=== PATIENT | female | born 1955 | race American Indian/Alaskan Native ===

== ENCOUNTER 2016-11-07 06:17 | Day surgery (SDC) | payer MEDICARE ==
[~2016-11-07 06:17] MED LIST: NACL 0.9% 1000 ML 1,000 ML IV SCH; PEPCID PO NR; VANCOMYCIN/NS 1 GM/250 ML 1 GM/250 ML BAG IV NR; VERSED IV NR
[2016-11-07] MEDS ORDERED: SUBLIMAZE ONE (07:07)
[2016-11-07] MEDS ORDERED: DIPRIVAN 10 MG/ML IV ONE (07:07)
[2016-11-07] MEDS ORDERED: DECADRON ONE (07:07)
[2016-11-07] MEDS ORDERED: ZOFRAN ONE (07:07)
[2016-11-07] MEDS ORDERED: XYLOCAINE MPF 2% ONE (07:07)
[2016-11-07] MEDS ORDERED: MARCAINE 0.5% INFILTRATI ONE ×2 (07:09→08:59)
[2016-11-07] MEDS ORDERED: HEPARIN 10,000 UNITS/10 ML ONE (07:10)
[2016-11-07] MEDS ORDERED: NACL 0.9% 500 ML 500 ML ONE (07:10)
[2016-11-07] MEDS ORDERED: NACL BACTERIOSTATIC INFILTRATI ONE (07:28)
--- NOTE | 2016-11-07 07:49 | Anesthesia Consultation ---
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
--- NOTE | 2016-11-07 07:50 | Anesthesia Day of Surgery ---
Anesthesia Day of Surgery - Day of Surgery Patient Examined: Yes Patient H&P Reviewed: Yes Patient is NPO: Yes Beta Blockers: Yes
[2016-11-07] MEDS ORDERED: ePHEDrine SULFATE ONE (08:23)
[2016-11-07] MEDS ORDERED: HEPARIN 10,000 UNITS/10 ML IV ONE (08:57)
[2016-11-07] MEDS ORDERED: NACL 0.9% IR ONE (08:58)
[2016-11-07] MEDS ORDERED: NACL 0.9% 500 ML IRRIGATION ONE (08:58)
--- NOTE | 2016-11-07 09:36 | Short Stay Summary ---
Short Stay Documentation Date of service: 11/07/16 Narrative H&P: See H&P - History H&P: obtained from office - Allergies and Medications Current Medications: Allergies Sulfa (Sulfonamide Antibiotics) Allergy (Severe, Verified 11/03/16 12:01) Headache acetaminophen [From Percocet] Allergy (Verified 11/03/16 12:01) headache ,nausea oxycodone HCl [From Percocet] Allergy (Verified 11/07/16 07:30) nausea , headache STATES SHE IS NOT ALLERGIC TO PERCOCET tramadol Adverse Reaction (Severe, Verified 11/03/16 12:01) Headache amoxicillin [Amoxicillin] Adverse Reaction (Verified 11/03/16 12:01) Hives codeine Adverse Reaction (Verified 11/03/16 12:01) nausea ,headache hydromorphone HCl [From Dilaudid] Adverse Reaction (Verified 11/03/16 12:01) Anaphylaxis Home Medications Medication Instructions Recorded Confirmed Last Taken Type Gabapentin 300 mg PO TID 05/27/13 11/03/16 09/09/14 12:00 History Hydralazine HCl [hydrALAZINE] 100 mg PO TID 05/27/13 11/03/16 09/10/14 04:30 History cloNIDine [Catapres] 0.2 mg PO BID 09/03/14 11/03/16 09/10/14 04:30 History HYDROcodone/ACETAMINOPHEN [[place] 1 each PO Q6HR PRN #60 tablet 09/10/14 Unknown Rx 7.5-325 mg TAB] Clopidogrel [Plavix] 75 mg PO HS 12/22/15 11/03/16 Unknown History Belatacept [Nulojix] 250 mg IV QMONTH 11/03/16 11/03/16 Unknown History Carvedilol [Coreg] 25 mg PO BID 11/03/16 11/03/16 Unknown History Cinacalcet [Sensipar] 30 mg PO QDAY 11/03/16 11/03/16 Unknown History Cyclobenzaprine [Flexeril] 10 mg PO QDAY PRN 11/03/16 11/03/16 Unknown History Fluticasone [Flonase] 2 spray INNOSTRIL QDAY 11/03/16 11/03/16 Unknown History Hydrocortisone [Anucort-HC SUPPOS] 25 mg RC BID 11/03/16 11/03/16 Unknown History Mycophenolate [Cellcept] 500 mg PO TID 11/03/16 11/03/16 Unknown History NIFEdipine XL [Procardia Xl] 60 mg PO BID 11/03/16 11/03/16 Unknown History Ondansetron [Zofran Odt] 4 mg PO QDAY PRN 11/03/16 11/03/16 Unknown History Prednisone [predniSONE ([place]) ER 5 mg PO QDAY PRN 11/03/16 11/03/16 Unknown History TAB] Ranitidine HCl [Zantac 300 MG TAB] 300 mg PO QPM 11/03/16 11/03/16 Unknown History Tacrolimus [Envarsus Xr] 4 mg PO BID 11/03/16 11/03/16 Unknown History clonazePAM [ Klonopin] 0.5 mg PO QDAY 11/03/16 11/03/16 Unknown History clonazePAM [Klonopin] 1 mg PO HS 11/03/16 11/03/16 Unknown History Active Medications Famotidine (Pepcid) 20 mg PO PREOP NR Stop: 11/07/16 23:59 Last Admin: 11/07/16 07:50 Dose: 20 mg Sodium Chloride (Nacl 0.9% 1000 Ml) 1,000 mls @ 42 mls/hr IV DIRECT LUIS Last Admin: 11/07/16 07:50 Dose: 42 mls/hr Vancomycin HCl (Vancomycin/Ns 1 Gm/250 Ml) 1 gm in 250 mls @ 166.667 mls/hr IV PREOP NR PRN Reason: Protocol Stop: 11/07/16 23:00 Last Admin: 11/07/16 07:50 Dose: 166.667 mls/hr Midazolam HCl (Versed) 2 mg IV PREOP NR Stop: 11/07/16 23:59 - Brief post op/procedure progress note Date of procedure: 11/07/16 Pre-op diagnosis: Complications of Dialysis Access Post-op diagnosis: same Procedure: Ligation of Left Arm Arteriovenous Fistula Anesthesia: KEVIN Surgeon: VANESSA BULLOCK Estimated blood loss: 50-100ml Pathology: none Condition: stable - Disposition Condition at discharge: Good Disposition: DISCHARGED TO HOME OR SELFCARE Short Stay Discharge Plan Activity: other (no heavy lifting with left arm) Wound: open to air, keep clean and dry, other (okay to wash the wound with soap and water but do not soak in water) Follow up with: VANESSA BULLOCK MD [Staff Physician] - 14 Days Prescriptions: Oxycodone HCl/Acetaminophen [Percocet 7.5/325 mg] 1 each PO Q6HR PRN #30 tablet PRN Reason: Pain
--- NOTE | 2016-11-07 09:42 | Operative Report ---
Operative Report Operative Report: Date of Procedure: 11/07/2016 Pre-operative Diagnosis: Complications of Dialysis Access Post-operative Diagnosis: Same Procedure(s): 1. Ligation of Left Arm Arteriovenous Fistula Surgeon: Robert Cutler M.D. Courtesy Clerk: None Anesthesia: Gen. Endotracheal Anesthesia EBL: 50 mL Counts: Correct Complications: None Condition: Stable Findings: Successful ligation of left arm arteriovenous fistula with repair of the brachial artery and palpable radial pulse completion of the case. Specimen: None Indication: The patient is a 61-year-old female with a history of end-stage renal disease. She had previously been on hemodialysis through a left arm arteriovenous fistula. She recently underwent a renal transplant and is no longer on hemodialysis. She has a history of central venous occlusive disease resulting in left arm swelling and pain. Since she is off dialysis she asked that her access being ligated to resolve her swelling and pain since she is no longer a candidate for fistulogram with angioplasty secondary to contrast. She was given the risk, benefits, and alternative procedures and consented to procedure. Description of Procedure: The patient was brought to the operating room and laid in supine position. After general endotracheal anesthesia was achieved the left arm was prepped and draped in normal sterile fashion. A transverse incision was created through her previous incision below the anatomic increase and carried down to the arterial anastomosis using sharp dissection. The brachial artery was dissected small and distal to the anastomosis and control vessels. I dissected circumferentially around the fistula and then ligated the fistula just proximal to the anastomosis. I divided the fistula and then used the redundant portions of the fistula to close the brachial artery arteriotomy with a 6-0 Prolene in running fashion. After completing the closure the vessels were released allowing flow in the brachial artery which had an excellent pulse at the area of repair and at the radial artery. I then made a longitudinal incision in the upper arm through her previous incision that was used for elevation of her fistula. I dissected down to the fistula using sharp dissection and then dissected circumferentially around the proximal fistula. I then placed a 2-0 silk around the fistula and evacuated the residual blood within the fistula and then ligated the fistula leaving the remaining portion decompressed. Hemostasis within the wounds was achieved with clot electrocautery. Once hemostasis was achieved both wounds were anesthetized with Marcaine and closed in 2 layers using a 3-0 Vicryl in a running fashion and the deep dermal layer, a 4-0 Monocryl in running fashion and subcuticular, and then dressed with Dermabond. The patient tolerated the procedure well. All sponge, needle, and instrument counts were correct. The patient was taken to the recovery area in stable condition.
[2016-11-07] MEDS ORDERED: DILAUDID IV PRN (09:45)
[2016-11-07] MEDS ORDERED: MORPHINE IV PRN (10:17)
--- NOTE | 2016-11-07 10:49 | Post Anesthesia Evaluation ---
- Post Anesthesia Evaluation Patient Participated: Yes Airway Patent: Yes Stable Respiratory Function: Yes Nausea/Vomiting: No Temp > 96.8F: Yes Pain Manageable: Yes Adequeate Hydration: Yes Anesthesia Complications: No Block Receding Appropriately: Not Applicable Patient on Ventilator: No
[2016-11-07] MEDS ORDERED: PERCOCET 5/325 PO PRN (11:30)
[2016-11-07 11:43] VITALS: BP 131/77
--- NOTE | 2016-11-07 16:31 | Admit Criteria Form ---
Admission Criteria Documentation: AMBULATORY SURGERY EXCEPTION CRITERIA Ambulatory Surgery Exception Criteria ( Place 'X' for any and all applicable criteria): Surgery or procedure performed on ambulatory basis may require inpatient stay for[A] ANY ONE of the following(1)(2)(3)(4)(5)(6)(7)(8)(9): [X] I. A preoperative situation, condition, or finding that warrants inpatient stay as indicated by ANY ONE of the following: [] a) Inpatient care needed because of severity of a disease or condition rather than the surgery (eg, severe cardiac or respiratory disease, severe infection) (15) (16 ) (17) (18) [] b) Emergent procedure (eg, angioplasty for acute ischemia)(19) [] c) Complex surgical approach or situation as indicated by ANY ONE of the following(3): [] i) Open approach needed instead of usual endoscopic, transcatheter, or other less invasive procedure [] ii) Difficult approach because of previous operation [] iii) Airway monitoring required after open neck procedures(20)(21) [] iv) Large mass requiring unusually extensive dissection [] v) Additional complicating feature requiring inpatient care (eg, drain management)(22(23): [X] d) Major surgery in a pt with high anesthetic risk as indicated by ANY ONE of the following (2)(3)(5)(7)(8): [X] i) ASA risk class III or higher (severe systemic disease impairing function) [D] [] ii) Advanced age (eg, older than 85 years)(14)(24) [] iii) Symptomatic heart failure(25) [] iv) Symptomatic asthma or COPD(8)(21) [] v) Morbid obesity with hemodynamic or respiratory problems(20)( 21)(26)(27) [] vi) Obstructive sleep apnea(20)(21) [] vii) Former premature infants who are younger than 60 weeks [] viii) High risk for severe postoperative abnormalities (eg, severe postoperative hypocalcemia after parathyroidectomy for severe hyperparathyroidism)(27)( 28) [] ix) Unstable angina(25) [] e) Drug-related risk requiring inpatient stay as indicated by ANY ONE of the following(5)(10)(14)(32)(33) [] i) Procedure requires discontinuing drugs or other therapy (eg , antiarrhythmic medication, antiseizure medication), which necessitates inpatient observation or treatment.(18)(31) [] ii) Major surgery and high risk drug use as indicated by ANY ONE of the following: [] 1) Active abuse of cocaine or similar drug [] 2) Monoamine oxidase inhibitor use [] 3) Other drug identified as posing risk [] f) Inadequate outpatient care situation as indicated by ANY ONE of the following(5)(10)(14)(32)(33) [] i) Patient lives remote from medical facility and procedure has urgent complication potential, and temporary nearby residence cannot be arranged [] ii) Patient will have postprocedure incapacitation and inadequate assistance at home, or alternative level of care cannot be arranged. [] iii) Patient will have long general anesthesia or procedure side effect resolution time, and competent person to stay with patient on first postoperative night at home or alternative level of care cannot be arranged. []iv) Other inadequate outpatient situation that cannot be handled by other means [] II. A perioperative event, condition, or finding that warrants inpatient stay as indicated by ANY ONE of the following (1)(2)(3): [] a) Inadequate physiologic recovery: cardiovascular, respiratory, or hemodynamic status not normal or near preoperative baseline(18) [] b) Hemodynamic instability [] c) Patient not alert with near normal or baseline mental status [] d) Temperature not normal or as expected and not appropriate for outpatient treatment of condition [] e) Ambulatory or appropriate activity level status not yet achieved post procedure [E](34)(35)(36) [] f) Operative site not appropriate (eg, unexpected or excessive drainage or bleeding) [] g) Postoperative effects not resolved or adequately managed (eg, significant pain or vomiting not appropriate for outpatient or next level of care)(10)(12) [] h) Complicating features requiring inpatient care as indicated by ANY ONE of the following(37): [] i) Severe complications of procedure (eg, bowel injury, airway compromise, vascular injury,severe hemorrhage) [] ii) Extensive (eg, dissection far beyond usual scope of procedure ) or prolonged (eg, 120 minutes beyond usual) surgery needed requiring inpatient postoperative care [] iii) Conversion to an open or complex procedure that requires inpatient care (eg, open vs laparoscopic cholecystectomy, abdominal vs vaginal hysterectomy)(38) [] iv) Comorbid condition or test result identified during or post procedure that requires inpatient care (7) [] v) Malignant hyperthermia(30) [] vi) Other complicating feature requiring inpatient care(22)(23) Inpatient stay may be needed until ALL of the following are present (1)(2)(3)(4) (5)(6)(10)(14)(33)(40): []a) Physiologic recovery: cardiovascular, respiratory, and hemodynamic status normal or near preoperative baseline []b) Hemodynamic stability []c) Patient alert, with near normal or baseline mental status []d) Temperature appropriate: patient afebrile or temperature appropriate for outpt treatment of condition []e) Activity level appropriate: ambulatory or appropriate activity level post procedure []f) Operative site appropriate as indicated by ALL of the following: []i) Site dry or with expected drainage []ii) Any blood noted is as expected for procedure. []g) Postoperative effects resolved or managed as indicated by ALL of the following: []i) Pain management appropriate for outpatient (or next level of) care(10) []ii) Minimal nausea and vomiting: if present, successfully treated with oral medication(12) []iii) Headache, dizziness, or drowsiness (if present) are mild. []h) Voiding status acceptable as indicated by ANY ONE of the following: []i) Voiding spontaneously []ii) No voiding but instructions given for follow-up in 6 to 8 hours []iii) Urinary catheter in place, and instructions given for follow-up []i) Complicating features requiring inpatient care manageable at a lower level of care(37) []j) Comorbid conditions manageable at a lower level of care(37) The original [employer] content created by [employer] has been revised. The portions of the content which have been revised are identified through the use of italic text or in bold, and [facility] [email or web address] has neither reviewed nor approved the modified material. All other unmodified content is copyright [employer]. Please see references footnoted in the original [employer] edition 2016 Admission Criteria Met: Yes
== END 2016-11-07 11:44 | disposition home or self-care (01) ==
LOC: OR 06:17
PROVIDERS: ATTEND Surgery Vascular Surgery
DX: T82.590S Other mechanical complication of surgically created arteriovenous fistula, sequela (principal); I12.0 Hypertensive chronic kidney disease with stage 5 chronic kidney disease or end stage renal disease; N18.6 End stage renal disease; D64.9 Anemia, unspecified; Z99.2 Dependence on renal dialysis; Z94.0 Kidney transplant status; Z86.73 Personal history of transient ischemic attack (TIA), and cerebral infarction without residual deficits; Z80.9 Family history of malignant neoplasm, unspecified; Z83.3 Family history of diabetes mellitus; Z82.49 Family history of ischemic heart disease and other diseases of the circulatory system; Z79.899 Other long term (current) drug therapy; Y83.2 Surgical operation with anastomosis, bypass or graft as the cause of abnormal reaction of the patient, or of later complication, without mention of misadventure at the time of the procedure
CPT/HCPCS: 37607; 88304; J1100; J1644; J2270; J2405; J2704; J3010; J3370; J7030; J7040; J2250